=== PATIENT | male | born 1945 | race Caucasian/White ===

== ENCOUNTER → 2018-10-06 | Outpatient (CLI) | payer OTHER ==
[~2018-10-06] MED LIST: ASPIRIN EC81 M1 PO; CELEBREX 200 M200 M1 PO; COLACE100 MG PO; CRESTOR40 MG PO; FISH OIL 1,2001 EAC3 PO; GABAPENTIN100 MG PO; HYDROCODON-ACE1 EAC8 PO; HYDROCODON-ACE1 EACH PO; MIDRIN CAPSULE1 CAP PO; MULTIVITAMINS1 EAC7 PO; NORCO 5-325 TA1 EACH PO; NORFLEX100 MG PO; PREDNISONE 5 MG5 M1 PO; RITALIN10 MG PO; ROBAXIN 750 MG750 M1 PO; TRICOR48 MG PO; VITAMIN D400 UNI1; ZETIA10 MG PO
== END ==
LOC: CAT 07:42
DX: Z13.6 Encounter for screening for cardiovascular disorders (principal); E78.00 Pure hypercholesterolemia, unspecified; Z82.49 Family history of ischemic heart disease and other diseases of the circulatory system

== ENCOUNTER → 2020-01-17 | Outpatient (CLI) | payer OTHER | LOC: SJCVCIMAG 09:13 | PROVIDERS: ATTEND Internal Medicine Cardiovascular Disease | DX: I08.0 Rheumatic disorders of both mitral and aortic valves (principal); I45.10 Unspecified right bundle-branch block; I10 Essential (primary) hypertension ==

== ENCOUNTER → 2021-02-28 | Outpatient (CLI) | payer OTHER | LOC: SJCVC 13:40 | PROVIDERS: ATTEND Internal Medicine Cardiovascular Disease | DX: R93.1 Abnormal findings on diagnostic imaging of heart and coronary circulation (principal); I10 Essential (primary) hypertension; E78.00 Pure hypercholesterolemia, unspecified; I45.10 Unspecified right bundle-branch block; E11.40 Type 2 diabetes mellitus with diabetic neuropathy, unspecified; Z72.89 Other problems related to lifestyle; Z79.82 Long term (current) use of aspirin; Z79.899 Other long term (current) drug therapy; Z88.2 Allergy status to sulfonamides; Z88.5 Allergy status to narcotic agent ==